=== PATIENT | male | born 1995 | race Caucasian/White ===

== ENCOUNTER 2022-10-28 11:44 | Emergency (ER) | payer OTHER, SELFPAY ==
[2022-10-28 11:57] VITALS: BP 151/73; PULSE 95; RESP 20; TEMP 36.4; O2SAT 96; BMI 25.8
--- NOTE | 2022-10-28 12:07 | ED_ITS ---
HPI - Chest Pain General Time Seen by Provider: 12:07 Date Seen: 10/28/22 Chief Complaint: Chest Pain Stated Complaint: Chest pain after CO exposure yesterday Time Seen by Provider: 10/28/22 12:07 Source: patient and RN notes reviewed Mode of arrival: ambulatory Limitations: no limitations History of Present Illness HPI narrative: Here send is a very pleasant 26-year-old male previously healthy who comes to the emergency room with complaints of chest pain. Patient notes that yesterday he actually had carbon monoxide poisoning. He states that they were using di esel engines in an area that they were told was well ventilated. He notes he was 3 hours into this when he did not feel very well and had episodes of coughing. They went to another area and was outside and he felt better. When they returned he started working again, left the door open but 1 hour into working he started coughing. He notes he also felt a little woozy and had a headache after work. He went to the urgency room in [place] at which time he was placed on oxygen. He does not know what his carbon monoxide level was. He notes that he was feeling better after 4 hours of being on oxygen. He was discharged at 0845 last night. He notes that when he got home he still had a headache but took ibuprofen was able to sleep and the headache is gone this morning. In fact, he has had complete resolution of all of his carbon monoxide symptoms. Now however he has chest pain. He notes that when he coughs or takes a sudden deep breath the entire front of his chest hurts. He notes though if he breeze slowly he does not have pain and tell his lungs are completely expanded. He notes this chest to be anterior. He is not lightheaded, nauseated, had a fever, or have pain at rest. He notes no change when he is active. Does note that yesterday he had 1 hour of continuous coughing to the point where he was almost vomiting. He has not had any wheezing or a cough today. He is not a smoker. He has not taken anything for the pain at this time. Related Data Home Medications Medication Instructions Recorded Confirmed No Known Home Medications 10/28/22 10/28/22 Allergies Allergy/AdvReac Type Severity Reaction Status Date / Time No Known Drug Allergies Allergy Verified 10/28/22 12:03 Review of Systems Status of ROS Reports: 10 or more systems reviewed and unremarkable except as noted in History and below Const Denies: fever or chills Eyes Denies: change in vision ENMT Denies: throat pain, neck pain or throat swelling Cardio Reports: chest pain; Denies: palpitations, swelling of feet/ankles, lightheadedness, shortness of breath with exertion, shortness of breath when lying down or bluish discoloration of hands/feet Resp Reports: cough (Yesterday); Denies: shortness of breath or wheezing GI Denies: abdominal pain, nausea or vomiting Musculo Denies: back pain, neck pain, extremity pain or extremity swelling Neuro Reports: headache (Yesterday with resolution today); Denies: numbness in extremities or weakness in extremities Allergy/Immuno Denies: throat swelling or wheezing PFSH PENDING SALE TO [facility] Social History Smoking Status: Never smoker Do you use any of these nicotine containing products: None Second hand tobacco smoke exposure: No How often do you have a drink containing alcohol: never AUDIT-C Alcohol total score: 0 Non-prescribed substance use: denies use service: No Exam Narrative Exam Narrative: Patient is alert and oriented. Very pleasant young gentleman. No acute distress. Neck is supple without lymphadenopathy. Pupils are equal round and reactive. Mentating normally. Heart with a regular rate and rhythm without murmur or rub. Lungs are clear in all lung brooke. No evidence of wheezing. Palpation of anterior chest does not yield significant discomfort. Abdomen soft nontender. Lower extremities without edema or calf tenderness. Moving all extremities. Const Vital Signs, click to edit/add: Vital Signs - 24 hr 10/28/22 11:57 10/28/22 13:30 Temperature 97.5 F L 98 F Pulse Rate [Pulse Oximeter] 95 57 L Respiratory Rate 20 20 Blood Pressure [Right Upper Arm] 151/73 H 120/77 Pulse Oximetry 96 96 Oxygen Delivery Method Room Air Room Air Documenting provider has reviewed patient's vital signs: yes Course Course Hospital Course: At this time patient says history suggests chest wall pain or costochondritis from the excessive coughing yesterday. However, I was not able to reproduce this discomfort with palpation. Therefore I suggest an EKG, troponin check, chest x-ray and trial of Toradol to see if this improves his discomfort. He is receptive to this plan. Vital Signs Vital signs: Initial Vital Signs Temperature 97.5 F L 10/28/22 11:57 Temperature Source Temporal Artery Scan 10/28/22 11:57 Pulse Rate 95 10/28/22 11:57 Respiratory Rate 20 10/28/22 11:57 Blood Pressure 151/73 H 10/28/22 11:57 Blood Pressure Mean 99 10/28/22 11:57 Pulse Oximetry 96 10/28/22 11:57 Oxygen Delivery Method 10/28/22 11:57 Vital Signs Temperature 97.5 F L 10/28/22 11:57 Pulse Rate 95 10/28/22 11:57 Respiratory Rate 20 10/28/22 11:57 Blood Pressure 151/73 H 10/28/22 11:57 Pulse Oximetry 96 10/28/22 11:57 Oxygen Delivery Method 10/28/22 11:57 Temperature 98 F 10/28/22 13:30 Pulse Rate 57 L 10/28/22 13:30 Respiratory Rate 20 10/28/22 13:30 Blood Pressure 120/77 10/28/22 13:30 Pulse Oximetry 96 10/28/22 13:30 Oxygen Delivery Method 10/28/22 13:30 MDM - Chest Pain MDM Narrative Medical decision making narrative: 1. Chest wall pain-at this time troponin and EKG are reassuring. Patient is describing chest wall discomfort. He does not feel that the Toradol helped him significantly but subjectively he does appear improved. I would recommend continuing ibuprofen 600 mg every 8 hours over the next day. Of course, should he have worsening symptoms such as fever, vomiting, worsening pain, lightheadedness or the onset of new symptoms I would like to see him come to the emergency rooms. He a feel safe going home at this time. No evidence of leukocytosis, kidney injury. Patient describes extensive coughing for an hour and now he states those likely more than an hour. States he was coughing so hard that he was almost at the point of vomiting. I think this is the etiology of his discomfort today. 2. Recent carbon monoxide poisoning-normal carboxyhemoglobin level. Patient does not smoke. He has no headache today. 3. Disposition-home. Return as needed. Lab Data Attestation: I reviewed the patient's lab results. Labs: Lab Results 10/28/22 10/28/22 10/28/22 Range/Units 12:40 12:40 12:40 WBC 7.86 (4.50-11.00) K/uL RBC 5.37 (4.30-5.90) m/uL Hgb 15.7 (13.5-17.5) gm/dL Hct 45.9 (37.0-53.0) % MCV 86 (80-100) fL MCH 29 (26-34) pg MCHC 34 (32-36) gm/dL RDW Coeff of [place] 12.0 (11.5-15.5) % Plt Count 195 (140-440) K/uL Neut % (Auto) 62.5 (42.0-72.0) % Lymph % (Auto) 21.9 (20-44) % [place] % (Auto) 8.5 (0.0-11.0) % Eos % (Auto) 6.1 (0.0-7.0) % Baso % (Auto) 0.4 (0.0-3.0) % Neut # (Auto) 4.91 (1.7-7.0) K/uL Lymph # (Auto) 1.72 (0.90-2.90) K/uL [place] # (Auto) 0.70 (0.00-0.90) K/UL Eos # (Auto) 0.48 (0.00-0.50) K/uL Baso # (Auto) 0.03 (0.00-0.30) K/uL Carboxyhemoglobin (0.0-5.0) % Sodium 140 (135-149) mmol/L Potassium 4.2 (3.6-5.1) mmol/L Chloride 107 (96-114) mmol/L Carbon Dioxide 27 (20-32) mmol/L BUN 15 (5-24) mg/dL Creatinine 1.0 (0.5-1.5) mg/dL Estimated Creat Clear 117.61 Estimated GFR 108 ml/min Glucose 90 (60-115) mg/dL Calcium 9.2 (8.4-10.6) mg/dL Troponin I < 0.01 L (0.01-0.04) ng/mL 10/28/22 Range/Units 12:40 WBC (4.50-11.00) K/uL RBC (4.30-5.90) m/uL Hgb (13.5-17.5) gm/dL Hct (37.0-53.0) % MCV (80-100) fL MCH (26-34) pg MCHC (32-36) gm/dL RDW Coeff of [place] (11.5-15.5) % Plt Count (140-440) K/uL Neut % (Auto) (42.0-72.0) % Lymph % (Auto) (20-44) % [place] % (Auto) (0.0-11.0) % Eos % (Auto) (0.0-7.0) % Baso % (Auto) (0.0-3.0) % Neut # (Auto) (1.7-7.0) K/uL Lymph # (Auto) (0.90-2.90) K/uL [place] # (Auto) (0.00-0.90) K/UL Eos # (Auto) (0.00-0.50) K/uL Baso # (Auto) (0.00-0.30) K/uL Carboxyhemoglobin 2.4 (0.0-5.0) % Sodium (135-149) mmol/L Potassium (3.6-5.1) mmol/L Chloride (96-114) mmol/L Carbon Dioxide (20-32) mmol/L BUN (5-24) mg/dL Creatinine (0.5-1.5) mg/dL Estimated Creat Clear Estimated GFR ml/min Glucose (60-115) mg/dL Calcium (8.4-10.6) mg/dL Troponin I (0.01-0.04) ng/mL Imaging Data Chest x-ray: Attestation: I have reviewed the pertinent imaging results. My impression: No evidence of pneumothorax, infiltrates. Radiologist's impression: Cardiovascular and mediastinum:? Heart size and vasculature are normal in caliber and appearance.? Lungs and pleural spaces:? Lungs are clear.? No sign of infiltrate or mass. ?No sign of pleural effusion.? No pneumothorax.? Bones and soft tissues:? No significant findings. IMPRESSION: No acute or significant findings. ECG Data Attestation: I personally reviewed and interpreted this ECG as follows: ECG interpretation date: 10/28/22 Prior ECG tracings: not available for review Interpretation: EKG by my read shows sinus rhythm at a rate of 66. No acute ST or T-wave changes are noted. QT corrected normal. Incomplete right bundle-branch Discharge Plan Discharge Clinical Impression: Anterior chest wall pain Patient Disposition: Home, Self-Care Condition: Unchanged Additional Instructions: At this time here EKG and blood test looking for heart damage are reassuring and negative. I would recommend continuing ibuprofen 600 mg every 8 hours for the next day. Take a COVID test if you would start running a fever. Return to the emergency room for worsening symptoms and as needed. Prescriptions: No Action No Known Home Medications Follow Up/Referrals: Provider,Not a Local [Primary Care Provider] - Stand Alone Forms: [facility] [facility] Info Instructions
--- NOTE | 2022-10-28 12:18 | CRLHL7_ITS ---
For Patients: As a result of the Cures Act, medical imaging exams and procedure reports are released immediately into your electronic medical record. You may view this report before your referring provider. If you have questions, please contact your health care provider. INDICATION: Chest pain. TECHNIQUE: Chest 2 views. COMPARISON: None. FINDINGS: Cardiovascular and mediastinum: Heart size and vasculature are normal in caliber and appearance. Lungs and pleural spaces: Lungs are clear. No sign of infiltrate or mass. No sign of pleural effusion. No pneumothorax. Bones and soft tissues: No significant findings. IMPRESSION: No acute or significant findings. Dictated by Erick Garcia MD @ 10/28/2022 1:37:33 PM (Electronically Signed)
[2022-10-28 12:57] LABS: Basophils Absolute Auto 0.03 K/uL (0.00-0.30); Basophils Percent Auto 0.4 % (0.0-3.0); Eosinophils Absolute Auto 0.48 K/uL (0.00-0.50); Eosinophils Percent Auto 6.1 % (0.0-7.0); Hematocrit 45.9 % (37.0-53.0); Hemoglobin* 15.7 gm/dL (13.5-17.5); Immature Granulocytes Abs Auto 0.05 K/uL (0.00-0.30); Immature Granulocytes Pct Auto 0.6 %; Lymphocytes Absolute Auto 1.72 K/uL (0.90-2.90); Lymphocytes Percent Auto 21.9 % (20-44); Mean Corpuscular HGB Conc 34 gm/dL (32-36); Mean Corpuscular Hemoglobin 29 pg (26-34); Mean Corpuscular Volume 86 fL (80-100); Monocytes Percent Auto 8.5 % (0.0-11.0); Neutrophils Absolute Auto 4.91 K/uL (1.7-7.0); Neutrophils Percent Auto 62.5 % (42.0-72.0); Platelet Count* 195 K/uL (140-440); Red Blood Count 5.37 m/uL (4.30-5.90); White Blood Count* 7.86 K/uL (4.50-11.00)
[2022-10-28 13:01] LABS: Slide Review Reflex No
[2022-10-28] MEDS: KETOROLAC 15 MG/ML inj IVP (13:03)
[2022-10-28 13:14] LABS: Chloride* 107 mmol/L (96-114); Potassium* 4.2 mmol/L (3.6-5.1); Sodium* 140 mmol/L (135-149)
[2022-10-28 13:17] LABS: Blood Urea Nitrogen* 15 mg/dL (5-24); Calcium* 9.2 mg/dL (8.4-10.6); Carbon Dioxide* 27 mmol/L (20-32); Est. Creatinine Clearance* 117.61; Estimated Glomerular Filt Rate 108 ml/min; Glucose* 90 mg/dL (60-115)
[2022-10-28 13:30] VITALS: BP 120/77; PULSE 57; RESP 20; TEMP 36.6; O2SAT 96
[2022-10-28 13:39] LABS: Troponin I* < 0.01 ng/mL (0.01-0.04)
[2022-10-28 14:01] LABS: Carboxyhemoglobin* 2.4 % (0.0-5.0)
== END 2022-10-28 14:17 | disposition home or self-care (01) ==
PROVIDERS: Emergency Provider Family Medicine
DX: R07.89 Other chest pain (principal)
CPT/HCPCS: 36415; 71046; 80048; 82375; 84484; 85025; 93005; 96374; 99284; 99285; J1885

== ENCOUNTER 2023-04-25 20:15 | Emergency (ER) | payer BC, OTHER, SELFPAY ==
[2023-04-25 20:53] VITALS: BP 124/72; PULSE 55; RESP 16; TEMP 36.8; O2SAT 98; BMI 27.3
--- NOTE | 2023-04-25 21:21 | ED.WOUNDLAC ---
HPI - Wound/Laceration General Date Seen: 04/25/23 Chief Complaint: Laceration/Wound Stated Complaint: L pointer finger lac Time Seen by Provider: 04/25/23 21:14 Source: patient and family Mode of arrival: ambulatory Limitations: no limitations History of Present Illness HPI narrative: Patient is a very nice 27-year-old male who presents here with laceration to his left pointer finger, his same finger that he had previous tendon surgery on, this occurred at home, using the significant other and child, it bled after bit, he is not on anti coagulants Related Data Home Medications Medication Instructions Recorded Confirmed No Known Home Medications 10/28/22 04/25/23 Allergies Allergy/AdvReac Type Severity Reaction Status Date / Time No Known Drug Allergies Allergy Verified 04/25/23 20:57 Review of Systems Status of ROS: Reports: 6 or more systems reviewed and unremarkable except as noted in History and below PFSH PFS Social History Smoking Status: Never smoker Do you use any of these nicotine containing products: None Second hand tobacco smoke exposure: No How often do you have a drink containing alcohol: never AUDIT-C Alcohol total score: 0 Non-prescribed substance use: denies use service: No Exam Narrative: Exam Narrative: Examination of left index finger, shows some limitation D IP flexion extension but he tells me this is chronic, there is a small transverse laceration approximately 4-5 mm across his mid of pad aspect of his left index finger, it comes together very nicely is not acutely bleeding. Cap refill sensations all normal. I explained to him that we will soak this for 10 minutes and then if it is bleeds and we will put some let on here. But I think this is a male be glued, with a stack finger splint. Const: Vital Signs, click to edit/add: Vital Signs - 24 hr 04/25/23 20:53 Temperature 98.3 F Pulse Rate [Pulse Oximeter] 55 L Respiratory Rate 16 Blood Pressure [Ri ght Upper Arm] 124/72 Pulse Oximetry 98 Oxygen Delivery Me thod Room Air Documenting provider has reviewed patient's vital signs: yes Course Course Hospital Course: Wound was cleaned off of him a cleansing glue without problem, Stack finger splint will be applied. Vital Signs Vital signs: Initial Vital Signs Temperature 98.3 F 04/25/23 20:53 Temperature Source Temporal Artery Scan 04/25/23 20:53 Pulse Rate 55 L 04/25/23 20:53 Pulse Rhythm Regular 04/25/23 20:53 Pulse Strength 3+ Normal 04/25/23 20:53 Respiratory Rate 16 04/25/23 20:53 Blood Pressure 124/72 04/25/23 20:53 Blood Pressure Mean 89 04/25/23 20:53 Blood Pressure Position Sitting 04/25/23 20:53 Pulse Oximetry 98 04/25/23 20:53 Oxygen Delivery Method Room Air 04/25/23 20:53 Vital Signs Temperature 98.3 F 04/25/23 20:53 Pulse Rate 55 L 04/25/23 20:53 Respiratory Rate 16 04/25/23 20:53 Blood Pressure 124/72 04/25/23 20:53 Pulse Oximetry 98 04/25/23 20:53 Oxygen Delivery Method Room Air 04/25/23 20:53 Temperature 98.3 F 04/25/23 20:53 Pulse Rate 55 L 04/25/23 20:53 Respiratory Rate 16 04/25/23 20:53 Blood Pressure 124/72 04/25/23 20:53 Pulse Oximetry 98 04/25/23 20:53 Oxygen Delivery Method Room Air 04/25/23 20:53 MDM - Wound/Laceration Differential Diagnosis Differential diagnosis: Likely laceration, abscess, abrasion and avulsion of skin Discharge Plan Discharge Clinical Impression: Laceration Patient Disposition: Home w/ Parent or Adult Condition: Stable Instructions: Laceration (DC), Skin Adhesive Care (ED) Additional Instructions: Home rest glue instructions given, follow-up with signs symptoms of infection, wear the splint for the next 7 days. Return as needed Prescriptions: No Action No Known Home Medications Follow Up/Referrals: Provider,Not a Local [Primary Care Provider] - Stand Alone Forms: [employer] Info Instructions
[2023-04-25 22:02] VITALS: BP 113/70; PULSE 68; RESP 16; TEMP 36.8; O2SAT 98
== END 2023-04-25 22:03 | disposition home or self-care (01) ==
PROVIDERS: Emergency Provider Family Medicine
DX: S61.211A Laceration without foreign body of left index finger without damage to nail, initial encounter (principal)
CPT/HCPCS: 99282; 99283

== ENCOUNTER 2024-08-03 21:00 | Emergency (ER) | payer BC, SELFPAY | END 2024-08-03 22:08 | disposition left against medical advice (07) | LOC: ED 21:59 | DX: Z53.21 Procedure and treatment not carried out due to patient leaving prior to being seen by health care provider (principal) ==